=== PATIENT | female | born 1955 | race Hispanic/Latino ===

== ENCOUNTER 2019-01-05 18:06 | Observation (INO) | payer MEDICARE, OTHER ==
[~2019-01-05] VITALS: Ht 149.9 cm; Wt 47.6 kg
[2019-01-05] MEDS ORDERED: SODIUM CHLORIDE 0.9% 500ML 500 ML IV ONE (18:20)
[2019-01-05 18:22] LABS: BASOPHILS % (AUTO) 0.2 % (0.0-5.0); EOSINOPHILS % (AUTO) 1.6 % (0.0-8.0); HEMATOCRIT 43.4 % (36-48); LYMPHOCYTES % (AUTO) 25.6 % (21.0-51.0); MEAN CORPUSCULAR HEMOGLOBIN 31.3 pg (27.0-33.0); MEAN CORPUSCULAR HGB CONC 34.4 g/dL (32.0-36.0); MONOCYTES % (AUTO) 5.9 % (3.0-13.0); NEUTROPHILS % (AUTO) 66.7 % (40.0-77.0); PLATELET COUNT (AUTO) 239 K/uL (130-400); RED BLOOD CELL COUNT(AUTO) 4.77 MIL/uL (4.00-5.50); RED CELL DISTRIBUTION WIDTH 13.1 % (11.0-15.5); WHITE BLOOD COUNT (AUTO) 5.1 K/uL (4.8-10.8)
[2019-01-05 18:43] LABS: CREATININE 0.7 mg/dL (0.5-1.5); POTASSIUM 3.7 mmol/L (3.5-5.1)
[2019-01-05 18:47] LABS: ALBUMIN 4.3 g/dL (3.5-5.0); BILIRUBIN,TOTAL 0.4 mg/dL (0.2-1.0)
[2019-01-05 22:32] VITALS: BP 144/77
[2019-01-05] MEDS ORDERED: HYDROCODONE/ACETAMINOPHEN 5/325 MG TAB PO PRN (22:45)
[2019-01-05] MEDS ORDERED: ONDANSETRON HCL 4 MG/2 ML VIAL IVP PRN (22:45)
[2019-01-05] MEDS ORDERED: HYDROCODONE/ACETAMINOPHEN 5/325 MG TAB ONE (22:49)
[2019-01-06 01:30] LABS: CREATINE KINASE, TOTAL 45 U/L (21-232); MYOGLOBIN 27 ng/mL (10-92); TROPONIN I < 0.04 ng/mL (0.00-0.06)
[2019-01-06 03:40] VITALS: BP 117/58
[2019-01-06 07:32] LABS: CREATINE KINASE, TOTAL 39 U/L (21-232); MYOGLOBIN 32 ng/mL (10-92); TROPONIN I < 0.04 ng/mL (0.00-0.06)
[2019-01-06 08:07] VITALS: BP 120/65
--- NOTE | 2019-01-06 12:03 | NUR ---
DCP CM met with pt discussed dc plans. Pt is independent prior to admission, lives at home with significant other. Denies any equipments/services. Pt feels safe to go back home, significant other able to assist with transportation and needs as necessary. DC plan to home once stable. Cm to cont to follow up. Addendum: 01/06/19 at 1204 by EYAD CARTER LVN CM Amended: Links added.
[2019-01-06 12:47] VITALS: BP 108/57
[2019-01-06] MEDS ORDERED: ACETAMINOPHEN 650 MG SUPPOSITORY RC PRN (13:30)
[2019-01-06] MEDS ORDERED: ACETAMINOPHEN 325 MG TAB PO PRN (13:30)
[2019-01-06] MEDS ORDERED: MECLIZINE HCL 12.5 MG TABLET PO PRN (13:30)
[2019-01-06 15:50] LABS: APPEARANCE,URINE Clear (CLEAR); BILIRUBIN,URINE Negative (NEGATIVE); COLOR,URINE Yellow (YELLOW); GLUCOSE, URINE (UA) Negative (NEGATIVE); KETONES,URINE Negative (NEGATIVE); LEUKOCYTE ESTERASE ,URINE Moderate (NEGATIVE); NITRATE,URINE Negative (NEGATIVE); OCCULT BLOOD,URINE Negative (NEGATIVE); PROTEIN,URINE Negative (NEGATIVE); UROBILINOGEN,URINE 0.2 mg/dL (0.2-1.0)
[2019-01-06] MEDS ORDERED: IOHEXOL-350 50ML VIAL IV ONE (15:50)
[2019-01-06 16:20] LABS: BACTERIA,URINE Rare /HPF (None Seen); MUCUS,URINE Rare LPF (None Seen); RBC,URINE 0-1 /HPF (0-1); SQUAMOUS EPITHELIAL CELL,UR Few /HPF (0-2)
[2019-01-06 16:25] VITALS: BP 131/70
--- NOTE | 2019-01-06 18:20 | NUR ---
REPORT TO [facility] TELEPHONE REPORT WAS CALLED IN TO JOY GARCIA AT [facility]. ALL PERTINENT INFORMATION PASSED ALONG. NO QUESTIONS OR CONCERNS VOICED BY NURSE. PENDING CALL TO EMS FOR TRANSFER. IV WILL BE LEFT SINCE PATIENT IS BEING TRANSFERRED TO AN ACUTE [facility]ARE [facility].
--- NOTE | 2019-01-06 18:21 | NUR ---
1635 [facility] call back with acceptance under Dr Martines. Bed assignment room 1518 and primary nurse to call report to [phone] and consents sign and EMS set up now awaiting for EMS. Randy suarez
--- NOTE | 2019-01-06 18:24 | NUR ---
1400 transfer request for neurologist 1530 chart reviewed and information fax to [facility] [place]. [address] [facility] will call back Primary nurse made aware. Randy suarez
--- NOTE | 2019-01-06 18:41 | NUR ---
INSTRUCTIONS DISCHARGE INSTRUCTIONS GIVEN TO PATIENT USING TEACH BACK. NO QUESTIONS OR CONCERNS VOICED. PENDING EMS ARRIVAL FOR TRANSPORT TO [facility] [place].
== END 2019-01-06 19:15 | disposition short-term general hospital (02) ==
LOC: EDH 18:06 → EDHIP 20:51 → 4BH 21:59
PROVIDERS: ADMIT Internal Medicine; ATTEND Internal Medicine
DX: R42 Dizziness and giddiness (principal); C07 Malignant neoplasm of parotid gland; G40.909 Epilepsy, unspecified, not intractable, without status epilepticus; R64 Cachexia; Z90.710 Acquired absence of both cervix and uterus; Z79.899 Other long term (current) drug therapy
CPT/HCPCS: 36415 ×2; 70450; 70488; 72125; 73020; 80053; 81001; 82550 ×2; 83874 ×2; 84484 ×3; 85025; 93005 ×2; 93880; 97039; 97161; 99284; G0378 ×22; G8978; G8979; G8980; G8981; G8982; G8983; J7040; Q9967

== ENCOUNTER 2019-07-22 11:11 | Emergency (ER) | payer OTHER ==
[2019-07-22] MEDS ORDERED: ASPIRIN 325 MG TABLET ONE (11:17)
[2019-07-22] MEDS ORDERED: DEXAMETHASONE SOD PHOSPHATE 10MG/ML 1ML VIAL ONE (11:17)
[2019-07-22] MEDS ORDERED: IPRATROPIUM/ALBUTEROL SULFATE 3 ML SOLUTION IH ONE (11:20)
[2019-07-22] MEDS ORDERED: CEFTRIAXONE SODIUM 1 GM ONE (11:29)
[2019-07-22] MEDS ORDERED: SODIUM CHLORIDE 0.9% 500ML 500 ML IV ONE (11:29)
[2019-07-22 11:30] LABS: BASOPHILS % (AUTO) 0.5 % (0.0-5.0); EOSINOPHILS % (AUTO) 3.9 % (0.0-8.0); HEMATOCRIT 38.6 % (36-48); MEAN CORPUSCULAR HEMOGLOBIN 30.8 pg (27.0-33.0); MEAN CORPUSCULAR HGB CONC 33.5 g/dL (32.0-36.0); MEAN CORPUSCULAR VOLUME 92.1 fL (79-99); MONOCYTES % (AUTO) 9.5 % (3.0-13.0); NEUTROPHILS % (AUTO) 66.1 % (40.0-77.0); PLATELET COUNT (AUTO) 225 K/uL (130-400); RED CELL DISTRIBUTION WIDTH 13.3 % (11.0-15.5); WHITE BLOOD COUNT (AUTO) 5.3 K/uL (4.8-10.8)
[2019-07-22 11:32] LABS: CREATININE 0.9 mg/dL (0.5-1.5); POTASSIUM 4.7 mmol/L (3.5-5.1)
[2019-07-22 11:37] LABS: ALBUMIN 3.7 g/dL (3.5-5.0); BILIRUBIN,TOTAL 0.6 mg/dL (0.2-1.0); TOTAL PROTEIN, SERUM 7.1 g/dL (6.0-8.3)
[2019-07-22 11:52] LABS: B-TYPE NATRIURETIC PEPTIDE 76 pg/mL (0-100)
== END 2019-07-22 12:57 | disposition home or self-care (01) ==
LOC: EDH 11:11
DX: J10.1 Influenza due to other identified influenza virus with other respiratory manifestations (principal); R07.89 Other chest pain; F32.9 Major depressive disorder, single episode, unspecified; Z90.710 Acquired absence of both cervix and uterus
CPT/HCPCS: 36415; 71045; 80053; 82550; 83880; 84484; 85025; 87804 ×2; 93005; 94640; 96374; 96375; 99285; J0696; J1100; J7040; 96365

== ENCOUNTER → 2021-05-25 | Outpatient (CLI) | payer OTHER | END | disposition home or self-care (01) | LOC: RAH 08:35 | PROVIDERS: ATTEND Internal Medicine | DX: I65.21 Occlusion and stenosis of right carotid artery (principal); I95.1 Orthostatic hypotension | CPT/HCPCS: 93306; 93356; 93880 ==

== ENCOUNTER → 2021-12-11 | Outpatient (CLI) | payer OTHER, MEDICARE | END | disposition home or self-care (01) | LOC: RAH 10:00 | PROVIDERS: ATTEND Internal Medicine | DX: S09.90XA Unspecified injury of head, initial encounter (principal); G93.89 Other specified disorders of brain; M47.812 Spondylosis without myelopathy or radiculopathy, cervical region; M48.02 Spinal stenosis, cervical region; Z91.81 History of falling; W19.XXXA Unspecified fall, initial encounter; Y93.89 Activity, other specified; Y92.89 Other specified places as the place of occurrence of the external cause; Y99.8 Other external cause status | CPT/HCPCS: 70450; 72040 ==

== ENCOUNTER → 2023-09-30 | Outpatient (CLI) | payer OTHER, MEDICARE | END | disposition home or self-care (01) | LOC: LAB 11:31 | PROVIDERS: ATTEND Otolaryngology | DX: H90.3 Sensorineural hearing loss, bilateral (principal) | CPT/HCPCS: 36415; 82565; 84520 ==

== ENCOUNTER → 2023-11-10 | Outpatient (CLI) | payer OTHER, MEDICARE ==
[2023-11-10 11:59] LABS: CREATININE 0.8 mg/dL (0.5-1.0)
== END | disposition home or self-care (01) ==
LOC: LAB 11:29
PROVIDERS: ATTEND Otolaryngology
DX: H90.3 Sensorineural hearing loss, bilateral (principal)
CPT/HCPCS: 36415; 82565; 84520

== ENCOUNTER → 2023-11-12 | Outpatient (CLI) | payer OTHER, MEDICARE ==
[~2023-11-12] MED LIST: GADOTERATE MEGLUMINE 10 MMOL/20 ML VIAL IV ONE
== END | disposition home or self-care (01) ==
LOC: RAH 08:17
PROVIDERS: ATTEND Otolaryngology
DX: G93.89 Other specified disorders of brain (principal); H90.3 Sensorineural hearing loss, bilateral
CPT/HCPCS: 70553; A9575

== ENCOUNTER → 2024-11-23 | Outpatient (CLI) | payer OTHER, MEDICARE ==
[~2024-11-23] MED LIST changes: +DIATR MEGLU/DIATRIZOATE SODIUM 30 ML BOTTLE ONE; -GADOTERATE MEGLUMINE 10 MMOL/20 ML VIAL IV ONE
--- NOTE | 2024-11-23 12:46 | HMCIMG ---
ABD 1VW HISTORY: PICC G tube check COMPARISON: None FINDINGS: A frontal projection of the abdomen was obtained. Contrast was given through a PEG tube with opacification of the stomach and small bowel loops. No extravasation is seen. PEG tube is seen with distal tip in the stomach. A nonspecific bowel gas pattern is seen. Fecal material is seen in the colon. Degenerative changes of the thoracolumbar spine are noted. IMPRESSION: 1. A nonspecific bowel gas pattern is seen.
== END | disposition home or self-care (01) ==
LOC: RAH 11:52
PROVIDERS: ATTEND Internal Medicine Gastroenterology
DX: K94.20 Gastrostomy complication, unspecified (principal); R14.0 Abdominal distension (gaseous); M47.815 Spondylosis without myelopathy or radiculopathy, thoracolumbar region
CPT/HCPCS: 74018; Q9963

== ENCOUNTER 2025-05-22 12:08 | Emergency (ER) | payer OTHER, MEDICARE ==
[~2025-05-22] VITALS: Ht 149.9 cm; Wt 53.5 kg
--- NOTE | 2025-05-22 12:30 | EKG ---
[facility] Test Date: 2025-05-22 Test Time: 12:23:28 Pat Name: SAVAGE LARA Department: ED Room: Gender: F Com Writer: [id number] : [id number] Requested By: RODGER CHANCE Order Number: [id number] Reading MD: López Sharma Measurements Intervals [place] Rate: 70 P: 48 PA: 150 QRS: 28 QRSD: 84 T: 52 QT: 380 QTc: 409 Interpretive Statements Sinus rhythm Compared to ECG 07/22/2019 11:11:03 No significant changes Electronically Signed On 05-22-2025 14:28:25 CDT by López Sharma Please click the below link to view image of tracing.
[2025-05-22 12:48] LABS: IMMATURE GRANULOCYTE ABSOLUTE 0.03 K/uL (0-1); NUCLEATED RED BLOOD CELLS 0.0 % (0.0-0.19); PLATELET COUNT (AUTO) 207 K/uL (130-400); RED BLOOD CELL COUNT(AUTO) 4.29 MIL/uL (4.00-5.50); RED CELL DISTRIBUTION WIDTH 13.2 % (11.0-15.5); WHITE BLOOD COUNT (AUTO) 4.9 K/uL (4.8-10.8)
[2025-05-22 13:14] LABS: CREATININE 0.7 mg/dL (0.5-1.0); GLOMERULAR FILTR. RATE CALC 94.0 mL/min (>90); GLUCOSE,RANDOM 107.0 mg/dL (70-105); SODIUM SERUM 143.0 mmol/L (136-145); UREA NITROGEN, BLOOD 12.0 mg/dL (7-18)
--- NOTE | 2025-05-22 13:24 | HMCIMG ---
EXAM: CT Head Without IV contrast. CLINICAL HISTORY: Fall TECHNIQUE: Axial computed tomography images of the head/brain without intravenous contrast. COMPARISON: CT - CT HEAD/BRAIN W/O CONTRAST - 12/11/21 10:35 EDT FINDINGS: BRAIN: Diffuse cerebral volume loss is seen. Small vessel ischaemic changes are noted in the bilateral fronto-parietal white matter. Focal loss of white matter volume involving the right temporal lobe with prominent adjacent sulcal and cisternal spaces. No acute intracranial haemorrhage, mass effect, or territorial infarct identified. No midline shift or extra-axial collection. VENTRICLES: Proportionately prominent in keeping with cerebral volume loss. No hydrocephalus. ORBITS: Unremarkable. SINUSES AND MASTOIDS: The paranasal sinuses and mastoid air cells are clear. BONES: Post-craniotomy changes noted in the right occipital region. Postsurgical scarring and altered cortical contours are seen at the right temporomandibular joint, with a deformed condyloid process of the mandible and adjacent sutural clips. Degenerative changes of the left temporomandibular joint are also noted. No acute fracture identified. SOFT TISSUES: Unremarkable. IMPRESSION: 1. No acute intracranial findings. 2. Post-craniotomy changes in right occipital region and postsurgical changes at right temporomandibular joint with deformed mandibular condyle. /[place]
--- NOTE | 2025-05-22 13:31 | HMCIMG ---
EXAM: CR Chest, 1 View. CLINICAL HISTORY: fall COMPARISON: Radiograph dated July 22, 2019. FINDINGS: LUNGS: There is no mass, infiltrate, or acute pulmonary abnormality. Presumed calcified granuloma within the peripheral right midlung. PLEURAL SPACES: No evidence of pleural effusion or pneumothorax. MEDIASTINUM: Cardiac size and mediastinal contours within normal limits. BONES: No aggressive appearing osseous lesion seen. IMPRESSION: No acute cardiopulmonary pathology is evident. /[place]
--- NOTE | 2025-05-22 13:56 | ERN ---
ED Note History of Present Illness Stated Complaint: FALL Chief Complaint: Mechanical Fall Time Seen by MD: 12:10 Dictation: 69-year-old female mechanical fall onto the right side of her head, patient reports headache generalized weakness no chest pain or shortness of breath no hip pain was able to stand up and ambulate on her own Allergies: Coded Allergies: No Known Allergies (Unverified Allergy, Unknown, 01/05/19) Home Meds No Active Prescriptions or Reported Meds Past Medical History Past Medical History: Cancer, GERD, High Cholesterol, Hypertension Surgical History: Other Surgical History Other: JAW SX Review of System Dictation Constitutional: Negative for fever,chills, and weight loss Eyes: Negative for injury, pain,redness, and discharge ENT: Negative for injury,pain or swelling Cardiovascular: Negative for chest pain, palpitations, and edema Respiratory: Negative for shortness of breath, cough, and wheezing, Abdomen/GI: Negative for abdominal pain, nausea, vomiting, diarrhea, and cons tipation Back: Negative for injury and pain : Negative for injury, bleeding and discharge MS/Extremity: Negative for injury and deformity Skin: Negative for rash, and discoloration Neuro: Per HPI Initial Vital Sign VS Vital Signs Date Time Temp Pulse Resp B/P (MAP) Pulse Ox O2 Delivery O2 Flow Rate FiO2 05/22/25 12:09 98.1 82 18 120/67 97 Physical Exam Dictation General: awake, alert, NAD Head/Face: Normocephalic, atraumatic Eyes: PERRL, EOMI, vision at baseline ENT: oral cavity clear, TMs clear, no signs of infection Neck: Trachea midline, supple, no nuchal rigidity Cardiovascular: RRR, normal S1/S2, No MRGs, no JVD Respiratory: CTAB, no respiratory distress, No rales or wheezes Abdomen: Soft, non-tender, non-distended, normal bowel sounds, no guarding or rebound. Skin: Warm, dry, normal turgor, no rash MS/Extremity: Pulses equal, no cyanosis, neurovascular intact, FROM Neuro: COAx4, GCS 15, strength 5/5, CN 2-12 intact, normal cerebellar exam, normal gait, Results (Laboratory/Radiology) Laboratory/Radiology Laboratory Tests Test 05/22/25 12:42 White Blood Count 4.9 K/uL (4.8-10.8) Red Blood Count 4.29 MIL/uL (4.00-5.50) Hemoglobin 13.0 g/dL (12.0-16.0) Hematocrit 41.0 % (36-48) Mean Corpuscular Volume 95.6 fL (79-99) Mean Corpuscular Hemoglobin 30.3 pg (27.0-33.0) Mean Corpuscular Hemoglobin Concent 31.7 g/dL (32.0-36.0) L Red Cell Distribution Width 13.2 % (11.0-15.5) Platelet Count 207 K/uL (130-400) Mean Platelet Volume 9.8 fL (7.5-10.5) Immature Granulocyte % (Auto) 0.6 % (0-1) Neutrophils (%) (Auto) 67.2 % (40.0-77.0) Lymphocytes (%) (Auto) 21.3 % (21.0-51.0) Monocytes (%) (Auto) 7.5 % (3.0-13.0) Eosinophils (%) (Auto) 3.0 % (0.0-8.0) Basophils (%) (Auto) 0.4 % (0.0-5.0) Neutrophils # (Auto) 3.3 K/uL (1.8-7.7) Lymphocytes # (Auto) 1.1 K/uL (1.0-4.8) Monocytes # (Auto) 0.4 K/uL (0.1-1.0) Eosinophils # (Auto) 0.15 K/uL (0.00-0.70) Basophils # (Auto) 0.02 K/uL (0.00-0.20) Absolute Immature Granulocyte (auto 0.03 K/uL (0-1) Nucleated Red Blood Cells 0.0 % (0.0-0.19) Sodium Level 143 mmol/L (136-145) Potassium Level 4.0 mmol/L (3.5-5.1) Chloride Level 105 mmol/L (101-111) Carbon Dioxide Level 31 mmol/L (21-32) Blood Urea Nitrogen 12 mg/dL (7-18) Creatinine 0.7 mg/dL (0.5-1.0) Glomerular Filtration Rate Calc 94 mL/min (>90) Random Glucose 107 mg/dL (70-105) H Total Calcium 9.0 mg/dL (8.5-10.1) Troponin I High Sensitivity 8 ng/L (4-50) Labs Reviewed?: Yes EKG Comment: Heart rate 70 normal sinus rhythm normal intervals no STEMI ED Course ED Course Orders Procedure Category Date Status Time Ct Head/Brain W/O CT 05/22/25 Resulted Contrast 12:23 Chest 1vw RAD 05/22/25 Resulted 12:23 12 Lead Ekg Tracing- EKG 05/22/25 Complete Technical 12:23 Basic Metabolic Panel LAB 05/22/25 Complete 12:23 Cbc With Differential LAB 05/22/25 Complete 12:23 Troponin I High LAB 05/22/25 Complete Sensitivity 12:23 Vital Signs Date Time Temp Pulse Resp B/P (MAP) Pulse Ox O2 Delivery O2 Flow Rate FiO2 05/22/25 12:09 98.1 82 18 120/67 97 Medical Decision Making MDM MDM: Differential diagnosis: Rationale: Tests considered and ordered secondary to shared decision making include: Previous outside records reviewed: Old ER visits. Risk of complication and/or morbidity or mortality of patient management: None Medications-Per medication reconciliation Need for hospitalization: Patient does not meet criteria for hospitalization. Need for emergency major/minor surgery: No There are no social concerns with this patient. Prescription drug management Prescriptions will include symptomatic care Patient's prior external medical records from other ER visits were reviewed by me as indicated. Prior testing and results from previous visits were reviewed. Prior tests were taken into account with medical decision making and resource utilization, independent historian/historians were used to obtain complete medical history. I independently interpreted the test that were performed, results were reviewed by me and considered findings on radiology if ordered. Medical management and examination interpretation discussions were had by me with other qualified healthcare professionals as indicated for the patient's care. 69-year-old female with ground level fall stable exam negative workup CT of the head negative, labs stable no signs of cardiac issue stable for discharge. DX & DISP Disposition: Discharge Departure Impression: Primary Impression: Fall Additional Impression: Head injury Condition: Stable Scripts No Active Prescriptions or Reported Meds Referrals: DIANA RAPHAEL MD (PCP) RODGER CHANCE MD May 22, 2025 13:56
[2025-05-22 14:13] VITALS: BP 138/58; PULSE 70; RESP 16; TEMP 98.1; O2SAT 97
== END 2025-05-22 14:14 | disposition home or self-care (01) ==
LOC: EDH 12:08
DX: S09.90XA Unspecified injury of head, initial encounter (principal); E78.00 Pure hypercholesterolemia, unspecified; I10 Essential (primary) hypertension; Z98.890 Other specified postprocedural states; W18.39XA Other fall on same level, initial encounter; Y93.89 Activity, other specified; Y92.89 Other specified places as the place of occurrence of the external cause; Y99.8 Other external cause status
CPT/HCPCS: 36415; 70450; 71045; 80048; 84484; 85025; 93005; 99285

== ENCOUNTER → 2025-05-24 | Outpatient (CLI) | payer OTHER, MEDICARE ==
--- NOTE | 2025-05-25 06:40 | HMCIMG ---
EXAM: CR Abdomen, 1 view. CLINICAL HISTORY: Pain. COMPARISON: None provided. FINDINGS: Radio-opaque feeding tube is seen with distal tip in stomach. Contrast filled stomach and duodenum is noted. Nonobstructed nonspecific bowel gas pattern. No free air is evident. No abnormal calcification. No aggressive appearing osseous lesion. IMPRESSION: No acute process. Radio-opaque feeding tube is seen with distal tip in stomach. Contrast filled stomach and duodenum is noted. /[place]
== END | disposition home or self-care (01) ==
LOC: RAH 10:36
PROVIDERS: ATTEND Internal Medicine Gastroenterology
DX: Z12.11 Encounter for screening for malignant neoplasm of colon (principal); R11.0 Nausea; R13.12 Dysphagia, oropharyngeal phase; K59.00 Constipation, unspecified; F41.9 Anxiety disorder, unspecified; Z93.1 Gastrostomy status
CPT/HCPCS: 74018; Q9963

== ENCOUNTER → 2025-06-17 | Outpatient (CLI) | payer OTHER, MEDICARE ==
[~2025-06-17] MED LIST changes: -DIATR MEGLU/DIATRIZOATE SODIUM 30 ML BOTTLE ONE; +IOHEXOL 350 MG/ML 100ML INFUS..BTL IV ONE
--- NOTE | 2025-06-19 14:00 | CARDIOLOGY ---
RAD REPORT: [facility] CT ANGIO RADIOLOGY REPORT: CORONARY CT ANGIOGRAPHY DATE: Jun 19, 2025 QUALITY: Excellent CLINICAL HISTORY AND INDICATION: [abnormal stress test ] TECHNIQUE: After obtaining a preliminary incident commander image, contrast imaging performed on an [employer] [id number] scanner. A dedicated, limited window, coronary imaging protocol was used, with single breath-hold, retrospective ECG gating, and automated arrhythmia rejection. 100 cc of low osmolar contrast agent: Omnipaque 350 was delivered via a 18-gauge IV catheter in the right antecubital fossa, using a power injector and followed by 60 cc of normal saline bolus as a chaser. Collimated images were reformatted at 0.5 mm intervals, and sent to an offline independent workstation for interpretation, using 3D anatomic reconstructions: Curved multiplanar reconstructions, maximum intensity projections, and multiplanar imaging. 10 mg IV metoprolol was administered prior to scanning. 0.8 mg SL nitroglycerin was given. CORONARY ARTERY DESCRIPTIONS: The coronary arteries arise in normal position. Left main coronary artery: Normal caliber vessel that bifurcates into the LAD and LCx. No stenosis. Left anterior descending coronary artery: Normal caliber vessel and gives rise to diagonal and septal branches. No stenosis. Left circumflex coronary artery: Normal caliber, nondominant and gives rise to a large OM branch. No stenosis. Right coronary artery: Large, dominant vessel giving rise to the PL and PDA branches. No stenosis. CAD-RADs: 0, absence of CAD. Thoracic Aorta: Normal diameter. Ayla Jordan MD Cardiovascular Disease [facility] AYLA JORDAN MD Jun 19, 2025 14:00
== END | disposition home or self-care (01) ==
LOC: RAH 09:00
PROVIDERS: ATTEND Internal Medicine Cardiovascular Disease
DX: I20.9 Angina pectoris, unspecified (principal); I95.1 Orthostatic hypotension
CPT/HCPCS: 75574; J3490; Q9967 ×2